=== PATIENT | male | born 1935 | race Caucasian/White ===

== ENCOUNTER → 2017-03-20 | Outpatient (CLI) | payer MEDICARE, OTHER ==
[2017-03-20 08:26] LABS: Basophils # (auto) 0 uL; Basophils % (auto) 0.6 % (0.0-2.0); Eosinophils # (auto) 0.4 uL; Eosinophils % (auto) 6.8 % (0.0-7.0); Hemoglobin 14.4 g/dL (13.5-17.5); Lymphocytes # (auto) 1.6 uL; Lymphocytes % (auto) 24.5 % (10.0-50.0); Mean Corpuscular Hemoglobin 32.9 pg (28.0-32.0); Mean Corpuscular Hgb Conc. 34.4 g/dL (32.0-36.0); Mean Corpuscular Volume 95.7 fL (80.0-100.0); Mean Platelet Volume 8.5 fL (7.4-10.4); Monocytes # (auto) 0.6 uL; Monocytes % (auto) 8.5 % (0.0-12.0); Neutrophils # (auto) 3.9 uL; Neutrophils % (auto) 59.6 % (37.0-80.0); Platelet Count (auto) 214 10^3/uL (140-450); Red Cell Distribution Width 13.2 % (11.6-16.0); White Blood Cell 6.5 10^3/uL (4.4-10.8)
[2017-03-20 08:33] LABS: Urine Bilirubin Negative (Negative); Urine Blood Negative /uL (Negative); Urine Color Yellow (Yellow); Urine Glucose Normal (Normal); Urine Ketone Negative (Negative); Urine Nitrite Negative (Negative); Urine RBC 1 /hpf (0 - 3); Urine Urobilinogen Normal (Negative)
[2017-03-20 09:05] LABS: Albumin 4.1 g/dL (3.4-5.0); BUN/Creatinine Ratio 21.9; Bilirubin, Total 1.1 mg/dL (0.2-1.0); Calcium 8.5 mg/dL (8.5-10.1); Potassium 4.2 mmol/L (3.5-5.1)
== END | disposition home or self-care (01) ==
LOC: LAB 07:55
PROVIDERS: ATTEND Internal Medicine
DX: Z00.00 Encounter for general adult medical examination without abnormal findings (principal)
CPT/HCPCS: 36415; 80053; 80061; 81001; 82270; 84153; 85025

== ENCOUNTER → 2018-01-14 | Outpatient (CLI) | payer MEDICARE, OTHER ==
[~2018-01-14] MED LIST: AMLO5TAB2 PO; RIVA20TA PO
[2018-01-14 11:45] LABS: Basophils # (auto) 0.1 uL; Basophils % (auto) 1.4 % (0.0-2.0); Eosinophils # (auto) 0.3 uL; Eosinophils % (auto) 4.1 % (0.0-7.0); Hemoglobin 13.3 g/dL (13.5-17.5); Lymphocytes # (auto) 1.3 uL; Lymphocytes % (auto) 21.8 % (10.0-50.0); Mean Corpuscular Hemoglobin 32.6 pg (28.0-32.0); Mean Corpuscular Hgb Conc. 34.1 g/dL (32.0-36.0); Mean Corpuscular Volume 95.4 fL (80.0-100.0); Monocytes # (auto) 0.7 uL; Monocytes % (auto) 10.6 % (0.0-12.0); Neutrophils # (auto) 3.8 uL; Neutrophils % (auto) 62.1 % (37.0-80.0); Platelet Count (auto) 197 10^3/uL (140-450); Red Blood Cells 4.09 10^6/uL (4.5-5.90); Red Cell Distribution Width 14.1 % (11.8-14.3); White Blood Cell 6.2 10^3/uL (4.4-10.8)
[2018-01-14 12:41] LABS: Albumin 4.2 g/dL (3.4-5.0); BUN/Creatinine Ratio 19.8; Bilirubin, Total 1.2 mg/dL (0.2-1.0); Calcium 8.9 mg/dL (8.5-10.1); Total Protein 7.1 g/dL (6.4-8.2)
== END | disposition home or self-care (01) ==
LOC: LAB 11:17
PROVIDERS: ATTEND Physician Assistant
DX: Z00.01 Encounter for general adult medical examination with abnormal findings (principal); I12.9 Hypertensive chronic kidney disease with stage 1 through stage 4 chronic kidney disease, or unspecified chronic kidney disease; N18.3 Chronic kidney disease, stage 3 (moderate); I48.2 Chronic atrial fibrillation; Z79.01 Long term (current) use of anticoagulants
CPT/HCPCS: 36415; 80053; 80061; 82270; 85025

== ENCOUNTER 2022-04-25 12:44 | Inpatient (IN) | payer MEDICARE, OTHER ==
[~2022-04-25] VITALS: Ht 170.2 cm; Wt 74.4 kg
[2022-04-25] VITALS (9 sets, daily range): BP systolic 129–136; BP diastolic 55–70
[~2022-04-25 12:44] MED LIST changes: +AMLO-489 PO; -AMLO5TAB2 PO; +ASCO100076 PO; +B-CO1TAB8 PO; +CALC1TAB92 PO; +LATA0.0019 EACHEYE; +LISI-716 PO; +RIVA2.5T PO; -RIVA20TA PO; +[UNRECOGNIZED DRUG - CODE] PO
[2022-04-25] MEDS ORDERED: LIDOCAINE 2%HCL (LOCAL ANESTH.) INJ 10ml MDV ONE (15:03)
[2022-04-25] MEDS ORDERED: IOHEXOL 350 MG/ML 100ML IJ ONE (15:03)
[2022-04-25] MEDS ORDERED: fentaNYL CITRATE 100 MCG/2 ML VL ONE (15:14)
[2022-04-25] MEDS ORDERED: ANGIOMAX 250 MG VIAL IV ONE (15:14)
[2022-04-25] MEDS ORDERED: MIDAZOLAM HCL 2MG/2ML 2ml VIAL (1mg/ml) ONE (15:14)
[2022-04-25] MEDS ORDERED: SODIUM CHL 0.9% 50 ML ONE (15:15)
[2022-04-25] MEDS ORDERED: ASPirin 81 mg TAB ONE (16:13)
[2022-04-25] MEDS ORDERED: CLOPIDOGREL 300 MG TAB ONE (16:13)
[2022-04-25] MEDS ORDERED: DEXTROSE (50%) 50ML SYRG IV PRN (17:15)
[2022-04-25] MEDS ORDERED: LATANOPROST 0.005 % OPTH(EYE) SOL 2.5ML EACHEYE SCH (18:00)
[2022-04-25] MEDS ORDERED: amLODIPine BESYLATE 5 MG TAB PO SCH (18:00)
[2022-04-25] MEDS ORDERED: traZODone HCL 50 MG TAB PO ONE (22:00)
[2022-04-25] MEDS ORDERED: ACCU-CHEK COMFORT CURVE STRIP VI SCH (22:00)
[2022-04-25] MEDS ORDERED: InsuLIN REG 1unit/0.01ml Soln (100units/ml) SC SCH (22:00)
[2022-04-26 05:00] VITALS: BP 144/69
[2022-04-26] MEDS ORDERED: InsuLIN REG 1unit/0.01ml Soln (100units/ml) SC SCH (07:00)
[2022-04-26 09:00] VITALS: BP 125/57
[2022-04-26] MEDS ORDERED: CHOLECALCIFEROL (VITD3) 1,000UNIT=25mCg TAB PO SCH (10:00)
[2022-04-26] MEDS ORDERED: LISINOPRIL 10 MG TAB PO SCH (10:00)
[2022-04-26] MEDS ORDERED: RIVAROXABAN 10 MG TAB PO SCH (10:00)
[2022-04-26] MEDS ORDERED: CALCIUM CARB 500 MG CHEW TAB PO SCH (10:00)
[2022-04-26] MEDS ORDERED: ASCORBIC ACID 1,000 MG TAB PO SCH (10:00)
[2022-04-26] MEDS ORDERED: B-COMPLEX W/ C & FOLIC ACID(NEPHROVITE TAB) PO SCH (10:00)
[2022-04-26 10:55] VITALS: BP 125/57
== END 2022-04-26 11:30 | disposition home or self-care (01) | DRG 272 ==
LOC: CATH 12:44 → CENTRAL 16:23
PROVIDERS: ADMIT Internal Medicine Cardiovascular Disease; ATTEND Internal Medicine Cardiovascular Disease
PROC: 04CL3ZZ Extirpation of Matter from Left Femoral Artery, Percutaneous Approach (ICD-10-PCS; principal; 2022-04-25)
PROC: 047L3ZZ Dilation of Left Femoral Artery, Percutaneous Approach (ICD-10-PCS; 2022-04-25)
PROC: 047N3ZZ Dilation of Left Popliteal Artery, Percutaneous Approach (ICD-10-PCS; 2022-04-25)
PROC: B41G1ZZ Fluoroscopy of Left Lower Extremity Arteries using Low Osmolar Contrast (ICD-10-PCS; 2022-04-25)
PROC: B41F1ZZ Fluoroscopy of Right Lower Extremity Arteries using Low Osmolar Contrast (ICD-10-PCS; 2022-04-25)
DX: I82.412 Acute embolism and thrombosis of left femoral vein (principal); Z20.822 Contact with and (suspected) exposure to COVID-19
CPT/HCPCS: 34201; 37224; 75716; 99152; G0378; J2001; J2250

== ENCOUNTER 2022-10-04 06:56 | Day surgery (SDC) | payer MEDICARE, OTHER ==
[~2022-10-04] VITALS: Ht 170.2 cm; Wt 73.9 kg
[2022-10-04] VITALS (9 sets, daily range): BP systolic 118–149; BP diastolic 59–93
[~2022-10-04 06:56] MED LIST changes: +CALC-6 OR; -CALC1TAB92 PO; +MULT-1018 PO; +NAPR-1334 PO; +TIMO0.5S66 EACHEYE; -[UNRECOGNIZED DRUG - CODE] PO
[2022-10-04] MEDS ORDERED: fentaNYL CITRATE 100 MCG/2 ML VL ONE (10:18)
[2022-10-04] MEDS ORDERED: MIDAZOLAM HCL 2MG/2ML 2ml VIAL (1mg/ml) ONE (10:18)
[2022-10-04] MEDS ORDERED: SODIUM CHL 0.9% 50 ML ONE (10:18)
[2022-10-04] MEDS ORDERED: ANGIOMAX 250 MG VIAL IV ONE (10:18)
[2022-10-04] MEDS ORDERED: LIDOCAINE 2%HCL (LOCAL ANESTH.) INJ 20ML MDV ONE (10:23)
[2022-10-04] MEDS ORDERED: IOHEXOL 350 MG/ML 100ML IJ ONE (10:23)
[2022-10-04] MEDS ORDERED: VERAPAMIL 2.5MG/ML INJ 2ML VIAL IV ONE (10:28)
[2022-10-04] MEDS ORDERED: NITROGLYCERIN 5MG/ML 10ML VIAL IV ONE (10:29)
[2022-10-04] MEDS ORDERED: CLOPIDOGREL 300 MG TAB ONE (11:41)
[2022-10-04] MEDS ORDERED: SODIUM CHL 0.9% 500 ML IV ONE (12:00)
== END 2022-10-04 14:05 | disposition home or self-care (01) ==
LOC: CATH 06:56
PROVIDERS: ATTEND Internal Medicine Cardiovascular Disease
DX: I70.213 Atherosclerosis of native arteries of extremities with intermittent claudication, bilateral legs (principal); I10 Essential (primary) hypertension; I25.10 Atherosclerotic heart disease of native coronary artery without angina pectoris; M19.90 Unspecified osteoarthritis, unspecified site; H40.89 Other specified glaucoma
CPT/HCPCS: 37184; 37185; C1724; C1760; C1761; C1769; C1887; C1894; J0583; J1644; J2250; J3010; J3490; J7030; Q9967; U0003; 99152; 99153

== ENCOUNTER 2022-11-22 06:53 | Day surgery (SDC) | payer MEDICARE, OTHER ==
[2022-11-22] VITALS (7 sets, daily range): BP systolic 129–152; BP diastolic 64–73
[~2022-11-22] VITALS: Ht 170.2 cm; Wt 73.0 kg
[~2022-11-22 06:53] MED LIST changes: +CLOP75TA70 PO; -MULT-1018 PO; +MULT-223 PO; +MULT-900 OR
[2022-11-22] MEDS ORDERED: ANGIOMAX 250 MG VIAL IV ONE (07:47)
[2022-11-22] MEDS ORDERED: MIDAZOLAM HCL 2MG/2ML 2ml VIAL (1mg/ml) ONE (07:47)
[2022-11-22] MEDS ORDERED: SODIUM CHL 0.9% 50 ML ONE (07:47)
[2022-11-22] MEDS ORDERED: fentaNYL CITRATE 100 MCG/2 ML VL ONE (07:47)
[2022-11-22] MEDS ORDERED: HEPARIN IN NS 1000Units/500mL 1,500 ML ONE (07:57)
[2022-11-22] MEDS ORDERED: LIDOCAINE 2%HCL (LOCAL ANESTH.) INJ 10ml MDV ONE (07:58)
[2022-11-22] MEDS ORDERED: IODIXANOL 320MG/ML 100ML BTL IV ONE (08:01)
[2022-11-22] MEDS ORDERED: CLOPIDOGREL BISULFATE 75 MG TAB ONE (09:36)
== END 2022-11-22 12:07 | disposition home or self-care (01) ==
LOC: CATH 06:53
PROVIDERS: ATTEND Internal Medicine Cardiovascular Disease
DX: I70.203 Unspecified atherosclerosis of native arteries of extremities, bilateral legs (principal); I25.5 Ischemic cardiomyopathy; I25.2 Old myocardial infarction; I10 Essential (primary) hypertension; I48.0 Paroxysmal atrial fibrillation; E78.5 Hyperlipidemia, unspecified; Z95.5 Presence of coronary angioplasty implant and graft; Z83.3 Family history of diabetes mellitus; Z82.49 Family history of ischemic heart disease and other diseases of the circulatory system; Z90.49 Acquired absence of other specified parts of digestive tract; Z79.899 Other long term (current) drug therapy; Z87.891 Personal history of nicotine dependence; Z20.822 Contact with and (suspected) exposure to COVID-19
CPT/HCPCS: 37226; C1725; C1760; C1769; C1876; C1887; C1894; C9803; J0583; J1644; J2001; J2250; J3010; J7030; Q9967; U0003; 99152; 99153

== ENCOUNTER 2023-09-12 08:51 | Day surgery (SDC) | payer MEDICARE, OTHER ==
[2023-09-09 10:05] LABS: Urine WBC None Seen /hpf (0 - 3)
[2023-09-09 10:53] LABS: Basophils # (auto) 0.1 10 ^3/uL (0-0.2); Basophils % (auto) 1.1 % (0.0-2.0); Eosinophils # (auto) 0.3 10 ^3/uL (0-0.8); Eosinophils % (auto) 3.6 % (0.0-7.0); Hematocrit 36.2 % (41.0-53.0); Lymphocytes # (auto) 1.3 10 ^3/uL (0.4-5.4); Lymphocytes % (auto) 15.9 % (10.0-50.0); Mean Corpuscular Hemoglobin 33.1 pg (28.0-32.0); Mean Corpuscular Hgb Conc. 33.2 g/dL (32.0-36.0); Mean Corpuscular Volume 99.6 fL (80.0-100.0); Monocytes # (auto) 0.7 10 ^3/uL (0-1.3); Monocytes % (auto) 8.8 % (0.0-12.0); Neutrophils # (auto) 5.7 10 ^3/uL (1.6-8.6); Neutrophils % (auto) 70.6 % (37.0-80.0); Red Blood Cells 3.64 10^6/uL (4.5-5.90); Red Cell Distribution Width 13.4 % (11.8-14.3); White Blood Cell 8.1 10^3/uL (4.4-10.8)
[2023-09-09 11:07] LABS: Urine Bacteria NONE SEEN /hpf (None Seen); Urine Blood Negative /uL (Negative); Urine Clarity Clear (Clear); Urine Color Yellow (Yellow); Urine Protein, UAD Negative (Negative); Urine Specific Gravity 1.015 (1.001-1.035); Urine Urobilinogen Normal (Negative); Urine pH 5.5 (5.0-8.0)
[2023-09-09 11:09] LABS: INR 1.11 (0.9-1.15); Partial Thromboplastin Time 29.9 SEC (24.5-34.5); Prothrombin Time 11.6 sec (9.3-11.8)
[2023-09-09 11:29] LABS: Alanine Aminotransferase 16 U/L (7-40); Albumin 4.6 g/dL (3.2-4.8); Alkaline Phosphatase 83 U/L (46-116); Anion Gap 7 (5-15); Aspartate Aminotransferase 16 U/L (13-40); BUN/Creatinine Ratio 16.8 (10.0-20.0); Bilirubin, Total 0.6 mg/dL (0.2-1.0); Blood Urea Nitrogen 27 mg/dL (9-23); Calcium 9.7 mg/dL (8.5-10.1); Carbon Dioxide 23 mmol/L (20-30); Chloride 113 mmol/L (98-107); Glucose 92 mg/dL (74-106); Potassium 5.1 mmol/L (3.5-5.1); Sodium 143 mmol/L (136-145)
[~2023-09-12] VITALS: Ht 170.2 cm; Wt 73.5 kg
[~2023-09-12 08:51] MED LIST changes: -AMLO-489 PO; +AMLO1TAB22 PO; +CARV6.2551 PO; -LATA0.0019 EACHEYE; +LATA0.008 EACHEYE; -LISI-716 PO; +TAMS0.4C36 PO
[2023-09-12] MEDS ORDERED: CIPROFLOXACIN 400MG/200ML 200 ML IV ONE (09:17)
[2023-09-12] MEDS ORDERED: PROPOFOL 10 MG/ML 20 ML IV ONE (11:18)
[2023-09-12 11:36] VITALS: TEMP 97.8; O2SAT 98
[2023-09-12 12:18] VITALS: BP 122/59; PULSE 90; RESP 19; O2SAT 98
== END 2023-09-12 12:20 | disposition home or self-care (01) ==
LOC: SUR 08:51
PROVIDERS: ATTEND Urology
DX: C61 Malignant neoplasm of prostate (principal); R97.20 Elevated prostate specific antigen [PSA]; I10 Essential (primary) hypertension; Z79.899 Other long term (current) drug therapy; N40.0 Benign prostatic hyperplasia without lower urinary tract symptoms
CPT/HCPCS: 36415; 55700; 80053; 81001; 85025; 85610; 85730; 87086; 88305; 88342; J0744; J2704

== ENCOUNTER → 2023-10-15 | Outpatient (CLI) | payer MEDICARE, OTHER | END | disposition home or self-care (01) | LOC: XYW 07:49 | PROVIDERS: ATTEND Urology | DX: C61 Malignant neoplasm of prostate (principal) | CPT/HCPCS: 78306; A9503 ==

== ENCOUNTER → 2024-03-18 | Outpatient (CLI) | payer MEDICARE, OTHER ==
[~2024-03-18] MED LIST changes: -NAPR-1334 PO; +NAPR-1335 PO
[2024-03-18 08:56] LABS: Basophils # (auto) 0.1 10 ^3/uL (0-0.2); Eosinophils # (auto) 0.3 10 ^3/uL (0-0.8); Hematocrit 33.7 % (41.0-53.0); Hemoglobin 11.4 g/dL (13.5-17.5); Lymphocytes % (auto) 17.3 % (10.0-50.0); Mean Corpuscular Hemoglobin 33.2 pg (28.0-32.0); Mean Corpuscular Hgb Conc. 33.8 g/dL (32.0-36.0); Mean Corpuscular Volume 98.2 fL (80.0-100.0); Monocytes # (auto) 0.6 10 ^3/uL (0-1.3); Monocytes % (auto) 10.8 % (0.0-12.0); Neutrophils # (auto) 3.6 10 ^3/uL (1.6-8.6); Neutrophils % (auto) 63.9 % (37.0-80.0); Red Blood Cells 3.43 10^6/uL (4.5-5.90); Red Cell Distribution Width 13.4 % (11.8-14.3); White Blood Cell 5.6 10^3/uL (4.4-10.8)
[2024-03-18 09:36] LABS: Alanine Aminotransferase 15 U/L (7-40); Albumin 4.5 g/dL (3.2-4.8); Alkaline Phosphatase 97 U/L (46-116); Anion Gap 7 (5-15); Aspartate Aminotransferase 16 U/L (13-40); BUN/Creatinine Ratio 13.5 (10.0-20.0); Bilirubin, Direct 0.3 mg/dL (<0.3); Bilirubin, Total 0.7 mg/dL (0.2-1.0); Blood Urea Nitrogen 21 mg/dL (9-23); Calcium 9.8 mg/dL (8.5-10.1); Carbon Dioxide 22 mmol/L (20-30); Chloride 112 mmol/L (98-107); Cholesterol 140 mg/dL (< 200); Glucose 93 mg/dL (74-106); HDL Cholesterol 37 mg/dL (40-59); LDL Cholesterol 82 mg/dL (< 100); Potassium 4.7 mmol/L (3.5-5.1); Sodium 141 mmol/L (136-145); Total Protein 6.9 g/dL (5.7-8.2); Triglycerides 125 mg/dL (< 150)
[2024-03-18 09:39] LABS: Urine Blood Negative /uL (Negative); Urine Clarity Clear (Clear); Urine Color Light-Yellow (Yellow); Urine Protein, UAD Negative (Negative); Urine Urobilinogen Normal (Negative); Urine pH 5.5 (5.0-9.0)
== END | disposition home or self-care (01) ==
LOC: LAB 08:36
PROVIDERS: ATTEND Internal Medicine Cardiovascular Disease
DX: I10 Essential (primary) hypertension (principal); E11.9 Type 2 diabetes mellitus without complications; E55.9 Vitamin D deficiency, unspecified; D51.3 Other dietary vitamin B12 deficiency anemia; D64.9 Anemia, unspecified; C61 Malignant neoplasm of prostate
CPT/HCPCS: 36415; 80048; 80061; 80076; 81003; 83036; 84153; 84403; 84443; 85025

== ENCOUNTER → 2024-03-23 | Outpatient (CLI) | payer MEDICARE, OTHER | END | disposition home or self-care (01) | LOC: LAB 08:30 | PROVIDERS: ATTEND Urology | DX: C61 Malignant neoplasm of prostate (principal) | CPT/HCPCS: 84153 ==

== ENCOUNTER → 2024-03-27 | Outpatient (CLI) | payer MEDICARE, OTHER ==
[2024-03-27 12:23] LABS: Free T3 2.76 pg/mL (2.3-4.2)
[2024-03-27 12:24] LABS: Free T4 (Free Thyroxine) 1.15 ng/dL (0.89-1.76)
== END | disposition home or self-care (01) ==
LOC: LAB 11:24
PROVIDERS: ATTEND Internal Medicine Cardiovascular Disease
DX: E03.9 Hypothyroidism, unspecified (principal)
CPT/HCPCS: 36415; 84439; 84443; 84480; 84481

== ENCOUNTER → 2024-03-27 | Outpatient (CLI) | payer MEDICARE, OTHER ==
[~2024-03-27] MED LIST changes: +READI-CAT 2 (BARIUM SULF)(VANILLA SMOOTHIE) 450ML ONE
== END | disposition home or self-care (01) ==
LOC: Rad HDHVI 10:12
PROVIDERS: ATTEND Internal Medicine Cardiovascular Disease
DX: D17.79 Benign lipomatous neoplasm of other sites (principal); N28.1 Cyst of kidney, acquired; D73.89 Other diseases of spleen; Z90.49 Acquired absence of other specified parts of digestive tract; K75.3 Granulomatous hepatitis, not elsewhere classified; I25.10 Atherosclerotic heart disease of native coronary artery without angina pectoris; N32.89 Other specified disorders of bladder
CPT/HCPCS: 74176

== ENCOUNTER → 2024-04-29 | Outpatient (CLI) | payer MEDICARE, OTHER ==
[~2024-04-29] MED LIST changes: -READI-CAT 2 (BARIUM SULF)(VANILLA SMOOTHIE) 450ML ONE
== END | disposition home or self-care (01) ==
LOC: LAB 07:26
PROVIDERS: ATTEND Nurse Practitioner Family
DX: N28.1 Cyst of kidney, acquired (principal)
CPT/HCPCS: 36415; 82565; 84520

== ENCOUNTER → 2024-07-20 | Outpatient (CLI) | payer MEDICARE, BC ==
[~2024-07-20] MED LIST changes: -TAMS0.4C36 PO; +TAMS0.4C39 PO
[2024-07-20 08:44] LABS: Basophils # (auto) 0.1 10 ^3/uL (0-0.2); Basophils % (auto) 2.2 % (0.0-2.0); Eosinophils # (auto) 0.3 10 ^3/uL (0-0.8); Hemoglobin 11.2 g/dL (13.5-17.5); Monocytes # (auto) 0.5 10 ^3/uL (0-1.3); Neutrophils # (auto) 3.1 10 ^3/uL (1.6-8.6); Nucleated Red Blood Cells % 0.1 %
[2024-07-20 08:46] LABS: Eosinophils % (auto) 5.3 % (0.0-7.0); Hematocrit 32.5 % (41.0-53.0); Lymphocytes % (auto) 19.7 % (10.0-50.0); Mean Corpuscular Hemoglobin 34.3 pg (28.0-32.0); Mean Corpuscular Hgb Conc. 34.6 g/dL (32.0-36.0); Mean Corpuscular Volume 99.1 fL (80.0-100.0); Monocytes % (auto) 10.3 % (0.0-12.0); Neutrophils % (auto) 62.5 % (37.0-80.0); Platelet Count (auto) 204 10^3/uL (140-450); Red Blood Cells 3.28 10^6/uL (4.5-5.90); Red Cell Distribution Width 13.4 % (11.8-14.3)
[2024-07-20 09:02] LABS: Chloride 111 mmol/L (98-107); Potassium 4.9 mmol/L (3.5-5.1); Sodium 140 mmol/L (136-145)
[2024-07-20 09:03] LABS: Anion Gap 6 (5-15); Carbon Dioxide 23 mmol/L (20-31)
[2024-07-20 09:04] LABS: Calcium 9.6 mg/dL (8.7-10.4)
[2024-07-20 09:08] LABS: BUN/Creatinine Ratio 18.8 (10.0-20.0); Blood Urea Nitrogen 30 mg/dL (9-23); Glucose 108 mg/dL (74-106)
== END | disposition home or self-care (01) ==
LOC: LAB 08:22
PROVIDERS: ATTEND Internal Medicine Cardiovascular Disease
DX: I10 Essential (primary) hypertension (principal); D64.9 Anemia, unspecified; R94.4 Abnormal results of kidney function studies
CPT/HCPCS: 36415; 80048; 85025

== ENCOUNTER → 2025-01-07 | Day surgery (SDC) | payer MEDICARE, BC ==
[2025-01-04 09:07] LABS: Urine Bacteria None Seen /hpf (None Seen)
[2025-01-04 09:13] LABS: Basophils # (auto) 0 10 ^3/uL (0-0.2); Basophils % (auto) 0.2 % (0.0-2.0); Eosinophils # (auto) 0.4 10 ^3/uL (0-0.8); Eosinophils % (auto) 6.1 % (0.0-7.0); Hemoglobin 10.9 g/dL (13.5-17.5); Lymphocytes # (auto) 1.3 10 ^3/uL (0.4-5.4); Lymphocytes % (auto) 19.9 % (10.0-50.0); Monocytes # (auto) 0.7 10 ^3/uL (0-1.3); Monocytes % (auto) 10.2 % (0.0-12.0); Neutrophils # (auto) 4.2 10 ^3/uL (1.6-8.6); Neutrophils % (auto) 63.6 % (37.0-80.0); Platelet Count (auto) 209 10^3/uL (140-450); Red Blood Cells 3.51 10^6/uL (4.5-5.90); Red Cell Distribution Width 16.6 % (11.8-14.3); White Blood Cell 6.6 10^3/uL (4.4-10.8)
[2025-01-04 09:28] LABS: INR 0.98 (0.9-1.15); Partial Thromboplastin Time 25.3 SEC (24.5-34.5); Prothrombin Time 10.4 sec (9.3-11.8)
[2025-01-04 09:44] LABS: Alanine Aminotransferase 17 U/L (7-40); Albumin 4.6 g/dL (3.2-4.8); Alkaline Phosphatase 106 U/L (46-116); Anion Gap 9 (5-15); Aspartate Aminotransferase 19 U/L (13-40); BUN/Creatinine Ratio 14.5 (10.0-20.0); Bilirubin, Total 0.6 mg/dL (0.2-1.0); Blood Urea Nitrogen 22 mg/dL (9-23); Calcium 9.5 mg/dL (8.7-10.4); Carbon Dioxide 24 mmol/L (20-31); Glucose 101 mg/dL (74-106); Potassium 4.8 mmol/L (3.5-5.1); Sodium 142 mmol/L (136-145)
[2025-01-04 09:45] LABS: Chloride 109 mmol/L (98-107)
[2025-01-04 10:17] LABS: Urine Blood Negative /uL (Negative); Urine Clarity Clear (Clear); Urine Color Light-Yellow (Yellow); Urine Protein, UAD Negative (Negative); Urine Specific Gravity 1.012 (1.001-1.035); Urine Squamous Epithelial Cell None Seen /hpf (<5); Urine Urobilinogen Normal (Negative); Urine WBC < 1 /HPF (0-3)
[~2025-01-07] VITALS: Ht 170.2 cm; Wt 75.3 kg
[~2025-01-07] MED LIST changes: -ASCO100076 PO; +ASCO500C49 PO; -CLOP75TA70 PO; +LISI10TA34 PO; -NAPR-1335 PO; +PROPOFOL 10 MG/ML 20 ML IV ONE; +RELU120T PO; +ePHEDrine SULFATE 50 MG/ML AMP ONE
[2025-01-07 08:39] VITALS: RESP 19; TEMP 97.2; O2SAT 96
--- NOTE | 2025-01-07 08:39 | DVHHP2 ---
GI H&P Pre-Op Assessment Date: 01/07/25 Chief complaint: rectal bleeding HPI: per clinic note Past medical history: per clinic note Past surgical history: per clinic note Family history: per clinic note Physical exam: General: NAD, AAOX3 HEENT: PERRL, no scleral icterus, normal hearing, gums without lesions or bl eeding, oropharynx clear without erythema or exudate. Neck: Supple without enlargement of the thyroid, or lymphadenopathy. Chest: Normal size and shape, no tenderness, lung ruiz clear to auscultation and percussion, nonlabored breathing. Heart: RRR, no murmur Abdomen: non-distended, no tenderness to palpation, +BS, no hepatosplenomegaly Extremities: no edema Neurological: CN II-XII intact, sensation intact in all extremities, 5+ strength in all extremities Skin: No rashes, No jaundice Assessment: - rectal bleeding Plan: - sigmoidoscopy - Risks (bleeding, infection, perforation, reaction to sedation medications and cardiopulmonary arrest) and benefit of the procedure were explained to patient. Patient agrees to undergo the procedure. NIKHIL CASTRO MD Jan 07, 2025 08:39
--- NOTE | 2025-01-07 08:41 | DVHOP2 ---
Operative Report DATE OF OPERATION: 01/07/25 PROCEDURE: Sigmoidoscopy PREOPERATIVE INDICATION: The patient is a 89 -year-old male undergoing colonoscopy for rectal bleeding to the radiation proctitis. POSTOPERATIVE DIAGNOSES: 1. 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 PROCEDURE PERFORMED BY: Ernesto Rowley M.D. SCOPE: Olympus videocolonoscope. ASA CLASS: 3 PREOPERATIVE MEDICATIONS: MAC with Dr Braxton PROCEDURE IN DETAIL: After obtaining an informed consent, the patient was placed on left lateral decubitus position. He was then sedated with the above medications. A rectal examination was performed that was normal. The colonoscope was then passed through the anus into the rectosigmoid and to the sigmoid colon. There was a few diverticulosis in the sigmoid colon. There was radiation proctitis. It was cauterized with APC. The colonoscope was then withdrawn. The patient tolerated the procedure well without difficulty. WITHDRAWAL TIME: N/A QUALITY OF THE PREP: [place] Bowel Prep score: 2 COMPLICATIONS : None SPECIMENS: None DISPOSITION: D/C to home PLAN: 1. Will see if the cauterization stop the rectal bleeding. ERNESTO ROWLEY MD Jan 07, 2025 08:41
--- NOTE | 2025-01-07 08:42 | DVHDS2 ---
Physician Discharge Progress N Final Diagnosis: Radiation proctitis, diverticulosis Operations or Procedures: Operations or Procedures Sigmoidoscopy with cauterization with APC Condition on Discharge: Good Disposition: Home Discharge Instructions: Diet: Regular Activity: No Restrictions, As Tolerated Medications: Resume previous home medications Follow Up Care: Discharge Statement: "Patient was advised to return to the ER or call 911 if any headaches, dizziness, shortness of breath, chest pain, abdominal pain, bleeding, fevers, or worsening of medical condition. Patient was counseled about treatment plan, medications, possible side effects, patientverbalized understanding. All questions were answered to the best of my ability. This discharge took greater then 30 minutes in planning, reviewing documentation, counseling the patient, and discussing with other team members." NIKHIL CASTRO MD Jan 07, 2025 08:41
[2025-01-07 09:04] VITALS: BP 110/56; PULSE 73; RESP 13; O2SAT 98
== END | disposition home or self-care (01) ==
LOC: GI 06:49
PROVIDERS: ATTEND Internal Medicine Gastroenterology
DX: K62.5 Hemorrhage of anus and rectum (principal); K62.7 Radiation proctitis; K57.30 Diverticulosis of large intestine without perforation or abscess without bleeding; I48.91 Unspecified atrial fibrillation; I25.10 Atherosclerotic heart disease of native coronary artery without angina pectoris; I25.2 Old myocardial infarction; N18.30 Chronic kidney disease, stage 3 unspecified; Z79.899 Other long term (current) drug therapy; Z85.46 Personal history of malignant neoplasm of prostate; Z86.2 Personal history of diseases of the blood and blood-forming organs and certain disorders involving the immune mechanism; Z95.5 Presence of coronary angioplasty implant and graft; Z95.810 Presence of automatic (implantable) cardiac defibrillator; Z98.890 Other specified postprocedural states
CPT/HCPCS: 36415; 45334; 80053; 81001; 85025; 85610; 85730; J2704; J7030

== ENCOUNTER 2025-03-18 07:39 | Day surgery (SDC) | payer MEDICARE, BC ==
[2025-03-17 09:17] LABS: Urine Bacteria None Seen /hpf (None Seen)
[2025-03-17 10:04] LABS: Basophils # (auto) 0.1 10 ^3/uL (0-0.2); Basophils % (auto) 1.4 % (0.0-2.0); Eosinophils # (auto) 0.5 10 ^3/uL (0-0.8); Eosinophils % (auto) 7.4 % (0.0-7.0); Hematocrit 33.8 % (41.0-53.0); Hemoglobin 11.3 g/dL (13.5-17.5); Lymphocytes # (auto) 1.3 10 ^3/uL (0.4-5.4); Lymphocytes % (auto) 19.8 % (10.0-50.0); Mean Corpuscular Hgb Conc. 33.5 g/dL (32.0-36.0); Mean Corpuscular Volume 95.2 fL (80.0-100.0); Monocytes # (auto) 0.8 10 ^3/uL (0-1.3); Monocytes % (auto) 12.3 % (0.0-12.0); Neutrophils # (auto) 3.9 10 ^3/uL (1.6-8.6); Neutrophils % (auto) 59.1 % (37.0-80.0); Platelet Count (auto) 215 10^3/uL (140-450); Red Blood Cells 3.55 10^6/uL (4.5-5.90); Red Cell Distribution Width 15.6 % (11.8-14.3); White Blood Cell 6.6 10^3/uL (4.4-10.8)
[2025-03-17 10:08] LABS: Alanine Aminotransferase 17 U/L (7-40); Anion Gap 9 (5-15); BUN/Creatinine Ratio 16.5 (10.0-20.0); Calcium 9.8 mg/dL (8.7-10.4); Carbon Dioxide 21 mmol/L (20-31); Glucose 95 mg/dL (74-106); Sodium 142 mmol/L (136-145)
[2025-03-17 10:10] LABS: Albumin 4.7 g/dL (3.2-4.8); Aspartate Aminotransferase 17 U/L (13-40); Bilirubin, Total 0.5 mg/dL (0.2-1.0)
[2025-03-17 10:11] LABS: Alkaline Phosphatase 116 U/L (46-116); Blood Urea Nitrogen 27 mg/dL (9-23); Chloride 112 mmol/L (98-107); INR 1.01 (0.9-1.15); Partial Thromboplastin Time 25.9 SEC (24.5-34.5); Potassium 5.2 mmol/L (3.5-5.1); Prothrombin Time 10.7 sec (9.3-11.8)
[2025-03-17 11:21] LABS: Urine Blood Negative /uL (Negative); Urine Clarity Clear (Clear); Urine Color Light-Yellow (Yellow); Urine Protein, UAD Negative (Negative); Urine Specific Gravity 1.013 (1.001-1.035); Urine Squamous Epithelial Cell None Seen /hpf (<5); Urine Urobilinogen Normal (Negative); Urine WBC < 1 /HPF (0-3); Urine pH 5.5 (5.0-9.0)
[~2025-03-18] VITALS: Ht 170.2 cm; Wt 74.8 kg
[~2025-03-18 07:39] MED LIST changes: -PROPOFOL 10 MG/ML 20 ML IV ONE; -ePHEDrine SULFATE 50 MG/ML AMP ONE
--- NOTE | 2025-03-18 09:57 | DVHHP2 ---
GI H&P Pre-Op Assessment Date: 03/18/25 Chief complaint: Radiation proctitis and rectal bleeding HPI: per clinic note Past medical history: per clinic note Past surgical history: per clinic note Family history: per clinic note Physical exam: General: NAD, AAOX3 HEENT: PERRL, no scleral icterus, normal hearing, gums without lesions or bleeding, oropharynx clear without erythema or exudate. Neck: Supple without enlargement of the thyroid, or lymphadenopathy. Chest: Normal size and shape, no tenderness, lung ruiz clear to auscultation and percussion, nonlabored breathing. Heart: RRR, no murmur Abdomen: non-distended, no tenderness to palpation, +BS, no hepatosplenomegaly Extremities: no edema Neurological: CN II-XII intact, sensation intact in all extremities, 5+ strength in all extremities Skin: No rashes, No jaundice Assessment: - Radiation proctitis and rectal bleeding Plan: - sigmoidoscopy - Risks (bleeding, infection, perforation, reaction to sedation medications and cardiopulmonary arrest) and benefit of the procedure were explained to patient. Patient agrees to undergo the procedure. NIKHIL CASTRO MD Mar 18, 2025 09:57
[2025-03-18] MEDS ORDERED: LIDOCAINE 1% INJ PF 5ML AMP ONE (10:00)
[2025-03-18] MEDS ORDERED: PROPOFOL 10 MG/ML 20 ML IV ONE (10:00)
[2025-03-18 10:16] VITALS: TEMP 97.1; O2SAT 100
--- NOTE | 2025-03-18 10:16 | DVHOP2 ---
Operative Report DATE OF OPERATION: 03/18/25 PROCEDURE: Sigmoidoscopy PREOPERATIVE INDICATION: The patient is a 89 -year-old male undergoing sigmoidoscopy for rectal bleeding. POSTOPERATIVE DIAGNOSES: 1. Small area of radiation proctitis that was cauterized with APC. PROCEDURE PERFORMED BY: Ernesto Rowley M.D. SCOPE: Olympus videocolonoscope. 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 He was then sedated with the above medications. A rectal examination was performed that was normal. The colonoscope was then passed through the anus into the rectosigmoid colon. There was a small area of radiation proctitis that was cauterized with APC. The colonoscope was then withdrawn. The patient tolerated the procedure well without difficulty. WITHDRAWAL TIME: N/A QUALITY OF THE PREP: [place] Bowel Prep score: N/A COMPLICATIONS : None SPECIMENS: None DISPOSITION: D/C to home PLAN: 1. Continue to monitor for bleeding. ERNESTO ROWLEY MD Mar 18, 2025 10:16
--- NOTE | 2025-03-18 10:17 | DVHDS2 ---
Physician Discharge Progress N Final Diagnosis: Radiation proctitis that was cauterized with APC Operations or Procedures: Operations or Procedures Colonoscopy with cauterization with APC. Condition on Discharge: Good Disposition: Home Discharge Instructions: Diet: Regular Activity: No Restrictions, As Tolerated Medications: Resume Eliquis tomorrow Follow Up Care: Discharge Statement: "Patient was advised to return to the ER or call 911 if any headaches, dizziness, shortness of breath, chest pain, abdominal pain, bleeding, fevers, or worsening of medical condition. Patient was counseled about treatment plan, medications, possible side effects, patientverbalized understanding. All questions were answered to the best of my ability. This discharge took greater then 30 minutes in planning, reviewing documentation, counseling the patient, and discussing with other team members." NIKHIL CASTRO MD Mar 18, 2025 10:17
[2025-03-18 10:35] VITALS: BP 107/55; PULSE 74; RESP 13; O2SAT 96
== END 2025-03-18 10:48 | disposition home or self-care (01) ==
LOC: SUR 07:39
PROVIDERS: ATTEND Internal Medicine Gastroenterology
DX: K62.7 Radiation proctitis (principal); K62.5 Hemorrhage of anus and rectum
CPT/HCPCS: 36415; 80053; 81001; 85025; 85610; 85730; J2704; 45334

== ENCOUNTER 2025-03-25 09:34 | Outpatient (CLI) | payer MEDICARE, BC ==
[2025-03-26 08:07] LABS: PSA Free <0.02 ng/mL; Prostate Specific Antigen <0.1 ng/mL (0.0-4.0)
== END 2025-03-25 17:00 | disposition home or self-care (01) ==
LOC: LAB 09:34
PROVIDERS: ATTEND Radiology Radiation Oncology
DX: C61 Malignant neoplasm of prostate (principal)
CPT/HCPCS: 84154

== ENCOUNTER → 2025-04-14 | Outpatient (CLI) | payer MEDICARE, BC ==
[2025-04-14 09:55] LABS: Hematocrit 33.1 % (41.0-53.0); Hemoglobin 11.4 g/dL (13.5-17.5); Mean Corpuscular Hemoglobin 32.7 pg (28.0-32.0); Mean Corpuscular Volume 94.8 fL (80.0-100.0); Nucleated Red Blood Cells % 0.1 %
[2025-04-14 10:12] LABS: Alanine Aminotransferase 17 U/L (7-40); Alkaline Phosphatase 103 U/L (46-116); Anion Gap 9 (5-15); BUN/Creatinine Ratio 15.3 (10.0-20.0); Calcium 10.0 mg/dL (8.7-10.4); Carbon Dioxide 22 mmol/L (20-31); Glucose 103 mg/dL (74-106); Sodium 143 mmol/L (136-145); Total Protein 6.9 g/dL (5.7-8.2); Triglycerides 136 mg/dL (< 150)
[2025-04-14 10:13] LABS: Albumin 4.5 g/dL (3.2-4.8); Bilirubin, Total 0.6 mg/dL (0.2-1.0); Cholesterol 124 mg/dL (< 200)
[2025-04-14 10:14] LABS: Blood Urea Nitrogen 24 mg/dL (9-23); Chloride 112 mmol/L (98-107); HDL Cholesterol 36 mg/dL (40-59); Potassium 5.5 mmol/L (3.5-5.1)
== END | disposition home or self-care (01) ==
LOC: LAB 09:23
PROVIDERS: ATTEND Nurse Practitioner Family
DX: C61 Malignant neoplasm of prostate (principal); I13.0 Hypertensive heart and chronic kidney disease with heart failure and stage 1 through stage 4 chronic kidney disease, or unspecified chronic kidney disease; I50.9 Heart failure, unspecified; N18.9 Chronic kidney disease, unspecified; Z00.01 Encounter for general adult medical examination with abnormal findings
CPT/HCPCS: 36415; 80053; 80061; 84153; 84443; 85025